=== PATIENT | male | born 1985 | race African-American/Black ===

== ENCOUNTER → 2016-10-31 | Outpatient (CLI) | payer OTHER ==
--- NOTE | 2016-11-01 07:25 | US ---
HISTORY: Hematuria Study: Bilateral renal sonogram Comparison: None Technique: Multiple grayscale sonographic images were obtained Findings: The right kidney measured 11.1 x 4.1 x 5.4 centimeters. The left kidney measured 12.1 x 6.1 x 5.1 ce ntimeters. Cortical thickness is normal bilaterally. There is increase cortical echogenicity which c an be seen in medical renal disease. Clinical correlation is recommended. No solid masses, hydroneph rosis, stones, or perinephric fluid collections were identified. IMPRESSION: Increased cortical echogenicity which can be seen in medical renal disease. Clinical and laboratory correlation is recommended. Reported By:
== END ==
LOC: RAD 14:50
DX: R31.9 Hematuria, unspecified (principal)
CPT/HCPCS: 76770